=== PATIENT | male | born 1940 | race Caucasian/White ===

== ENCOUNTER 2022-12-12 10:53 | Outpatient (CLI) | payer MEDICARE, OTHER | END 2022-12-12 10:54 | disposition home or self-care (01) | LOC: CSHRAD 10:53 | PROVIDERS: ATTEND Neurological Surgery | DX: S12.9XXA Fracture of neck, unspecified, initial encounter (principal); S12.300D Unspecified displaced fracture of fourth cervical vertebra, subsequent encounter for fracture with routine healing | CPT/HCPCS: 72040 ==

== ENCOUNTER 2023-01-09 12:38 | Outpatient (CLI) | payer MEDICARE, OTHER | END 2023-01-09 12:39 | disposition home or self-care (01) | LOC: CSHRAD 12:38 | PROVIDERS: ATTEND Neurological Surgery | DX: S12.9XXD Fracture of neck, unspecified, subsequent encounter (principal); S12.300D Unspecified displaced fracture of fourth cervical vertebra, subsequent encounter for fracture with routine healing; S12.400D Unspecified displaced fracture of fifth cervical vertebra, subsequent encounter for fracture with routine healing | CPT/HCPCS: 72050 ==